=== PATIENT | female | born 1985 | race Caucasian/White ===

== ENCOUNTER 2017-07-02 09:15 | Emergency (ER) | payer MEDICAID ==
[~2017-07-02] VITALS: Ht 167.6 cm; Wt 83.9 kg
--- NOTE | 2017-07-02 10:25 | [facility]gent Treatment Center Report ---
History of Present Issue Date/Time Seen by Provider 07/02/17 1018 Visit Reason Pt arrived:Walked Presenting Problem:PT STATES SHE HAS WHITE PATCHES IN THE BACK OF HER THROAT X 2 DAYS Location if Accident: Onset of symptoms date/time:/ or onset unknown for:MEDICAL HX UNKNOWN Have you (or family members/close friends) recently traveled outside the [place]? N If Yes, where/when: Have you had exposure to infectious disease within the past month? TB? Other? Specify: Patient state that she has been having issues with GERD State that several nights ago she woke up and was belching up acid States that her throat was burning and she she rinsed out her mouth and took some of her stomach medication States that the next day she noticed that her throat was red and irritated state that she continued to take her stomach medication and then 2 days ago she noticed small white patches in the back of her throat on her tonsils and she began rinsing her mouth out and making sure to brush her teeth well and she state that they came out into her mouth and she got them out and they where kind of hard and tasted really bad ALLERGIES Coded Allergies: adhesive tape (Mild, 02/24/16) History Medical History General CAD? No Angina: No CO: No Hypertension? No Hyperlipidemia? No CHF? No COPD? No Asthma? No Anemia? No Hernia? No Thyroid Problems? No Hypothyroidism? No CVA? No Seizures? No Diabetes? No UTI? No Stones? No GB Disease: No Nephritic Syndrome? No Asplenia? No Hepatitis? No Sickle Cell Disease? No Arthritis? No Migraines? Yes Cataracts? No Glaucoma? No MRSA? Yes TB? No Cancer? No Immunization HX DT/Tetanus 08/25/08 Flu [id number] Pneumonia NEVER Surgical Hx Previous Surgery?Y NOVASURE ABLATION 2012 Tubal Ligation Family History Family HX Diabetes Yes CAD Yes Hypertension Yes Hyperlipidemia Yes Cancer Yes TB No Social History Smoking Hx Smoker: Current Every Day Smoker Tobacco: Yes Type Cigarettes Packs/day < 1 Pack Alcohol Alcohol: No Review of Systems All Other Systems Reviewed and Negative ENT throat pain. Physical Exam Vital Signs Vital Signs Date Time Temp Pulse Resp B/P Pulse O2 O2 Flow FiO2 Ox Delivery Rate 07/02 0928 97.7 74 18 104/74 96 General Appearance normal appearance, WD/WN, no apparent distress Ear, Nose, Throat Throat red irritated, no swelling no white patches noted Respiratory Status Yes: trachea midline, chest symmetrical, non tender chest. No: respiratory distress. 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 No Results/Orders Laboratory Tests 07/02/17 0926: Group A Strep Screen NOT DETECTED Orders Procedure Date/time Status [facility] STREP SCREEN 07/02 928 Complete Departure Departure Time of Disposition 1024 Disposition DC Home or Self Care(routine) Clinical Impression Primary Impression: Throat irritation Condition STABLE Referrals Ced WILKES,Faisal Morris (Family) Patient Instructions Sore Throat Additional Instructions * Encourage fluids, water, Gatorade, powerade, pedialyte if infant/toddler/or child * Warm salt water gargles for throat irritation *Warm fluids *Sore throat lozenges *Sleep elevated Discharge Counseling Counseled pt/family regarding diagnosis, test results, medications/RX, home care, follow up needs at 102
--- NOTE | 2017-07-02 10:25 | Urgent Treatment Center Report ---
History of Present Issue Date/Time Seen by Provider 07/02/17 1018 Visit Reason Pt arrived:Walked Presenting Problem:PT STATES SHE HAS WHITE PATCHES IN THE BACK OF HER THROAT X 2 DAYS Location if Accident: Onset of symptoms date/time:/ or onset unknown for:MEDICAL HX UNKNOWN Have you (or family members/close friends) recently traveled outside the [place]? N If Yes, where/when: Have you had exposure to infectious disease within the past month? TB? Other? Specify: Patient state that she has been having issues with GERD State that several nights ago she woke up and was belching up acid States that her throat was burning and she she rinsed out her mouth and took some of her stomach medication States that the next day she noticed that her throat was red and irritated state that she continued to take her stomach medication and then 2 days ago she noticed small white patches in the back of her throat on her tonsils and she began rinsing her mouth out and making sure to brush her teeth well and she state that they came out into her mouth and she got them out and they where kind of hard and tasted really bad ALLERGIES Coded Allergies: adhesive tape (Mild, 02/24/16) History Medical History General CAD? No Angina: No AR: No Hypertension? No Hyperlipidemia? No CHF? No COPD? No Asthma? No Anemia? No Hernia? No Thyroid Problems? No Hypothyroidism? No CVA? No Seizures? No Diabetes? No UTI? No Stones? No GB Disease: No Nephritic Syndrome? No Asplenia? No Hepatitis? No Sickle Cell Disease? No Arthritis? No Migraines? Yes Cataracts? No Glaucoma? No MRSA? Yes TB? No Cancer? No Immunization HX DT/Tetanus 08/25/08 Flu [id number] Pneumonia NEVER Surgical Hx Previous Surgery?Y NOVASURE ABLATION 2012 Tubal Ligation Family History Family HX Diabetes Yes CAD Yes Hypertension Yes Hyperlipidemia Yes Cancer Yes TB No Social History Smoking Hx Smoker: Current Every Day Smoker Tobacco: Yes Type Cigarettes Packs/day < 1 Pack Alcohol Alcohol: No Review of Systems All Other Systems Reviewed and Negative ENT throat pain. Physical Exam Vital Signs Vital Signs Date Time Temp Pulse Resp B/P Pulse O2 O2 Flow FiO2 Ox Delivery Rate 07/02 0928 97.7 74 18 104/74 96 General Appearance normal appearance, WD/WN, no apparent distress Ear, Nose, Throat Throat red irritated, no swelling no white patches noted Respiratory Status Yes: trachea midline, chest symmetrical, non tender chest. No: respiratory distress. 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 No Results/Orders Laboratory Tests 07/02/17 0926: Group A Strep Screen NOT DETECTED Orders Procedure Date/time Status [facility] [[email or web address] STREP SCREEN 07/02 928 Complete Departure Departure Time of Disposition 1024 Disposition DC Home or Self Care(routine) Clinical Impression Primary Impression: Throat irritation Condition STABLE Referrals Ced WILKES,Faisal Morris (Family) Patient Instructions Sore Throat Additional Instructions * Encourage fluids, water, Gatorade, powerade, pedialyte if infant/toddler/or child * Warm salt water gargles for throat irritation *Warm fluids *Sore throat lozenges *Sleep elevated Discharge Counseling Counseled pt/family regarding diagnosis, test results, medications/RX, home care, follow up needs at 1027
[2017-07-02 10:32] VITALS: BP 104/74
== END 2017-07-02 10:32 | disposition home or self-care (01) ==
LOC: UTC 09:15
DX: J39.2 Other diseases of pharynx (principal); F17.210 Nicotine dependence, cigarettes, uncomplicated